=== PATIENT | female | born 1980 | race African-American/Black ===

== ENCOUNTER 2017-06-08 16:54 | Emergency (ER) | payer SELFPAY ==
[~2017-06-08] VITALS: Ht 167.6 cm; Wt 104.3 kg
[~2017-06-08 16:54] MED LIST: ACETAMINOPHEN-1 EAC2 ORAL; AUGMENTIN 875-1 EAC1 ORAL; IBUPROFEN600 MG ORAL
[2017-06-08] MEDS ORDERED: Bacitracin Oint UD TOPIC ONE (17:45)
[2017-06-08] MEDS ORDERED: IBUPROFEN600 MG ORAL (18:03)
[2017-06-08] MEDS ORDERED: AUGMENTIN 875-1 EAC1 ORAL (18:03)
[2017-06-08 18:10] VITALS: BP 146/80
[2017-06-08 18:14] VITALS: BP 146/80
--- NOTE | 2017-06-08 22:32 | Emergency Room Report ---
History of Present Illness General Chief Complaint: Animal Bite Present Illness HPI The patient is a 37-year-old female presenting for a dog bite to the left leg. She states that this occurred today by an unknown dog. Pain is a 7/10 burning sensation to the left calf. Does not radiate. Worse with touch. Last tetanus shot was 2 years prior. She denies any fever or chills. She denies any other symptoms Allergies: Coded Allergies: AMITRIPTYLINE (Unverified Allergy, Unknown, 11/27/15) ATENOLOL (Unverified Allergy, Unknown, 11/27/15) Patient History Past Medical History: see triage record Pertinent Family History: none Last Menstrual Period: 05/18/17 Now: No Immunizations: UTD Reviewed Nursing Documentation: PMH: Agreed, PSxH: Agreed Nursing Documentation-PMH Hx Hypertension: Yes Hx Asthma: Yes Review of Systems All Other Systems: negative except mentioned in HPI Physical Exam Vital Signs Date Time Temp Pulse Resp B/P Pulse Ox O2 Delivery O2 Flow Rate FiO2 06/08/17 17:10 98.8 96 17 171/99 98 Room Air Sp02 EP Interpretation: reviewed, normal General Appearance: no apparent distress, alert, GCS 15, non-toxic Head: normocephalic, atraumatic Eyes: bilateral eye PERRL, bilateral eye normal inspection Musculoskeletal: back normal, gait/station normal, normal range of motion, tender - TTP over the L posterior calf at bite site Neurologic: alert, oriented x3, responsive, motor strength/tone normal, sensory intact, speech normal Psychiatric: judgement/insight normal, memory normal, mood/affect normal, no suicidal/homicidal ideation Skin: laceration - 1cm superficial puncture to L posterior calf Lymphatic: no adenopathy Medical Decision Making PA Attestation Dr. Causey is my supervising physician. Patient management was discussed with my supervising physician Diagnostic Impression: Primary Impression: Dog bite Qualified Codes: W54.0XXA - Bitten by dog, initial encounter ER Course The patient is a 37-year-old female presenting for a dog bite to the left leg Differential diagnosis is considered but not limited to: Dog bite, wound infection, laceration, allergic reaction Physical exam: There is a 1 cm superficial laceration to the left posterior calf. No active bleeding. Normal gait The wound is cleaned with normal saline and Betadine. Bacitracin applied She'll be discharged home with Augmentin. ER precautions are given Last Vital Signs Date Time Temp Pulse Resp B/P Pulse Ox O2 Delivery O2 Flow Rate FiO2 06/08/17 18:14 98.8 87 17 146/80 99 Room Air Status: improved Disposition: HOME, SELF-CARE Condition: Improved Scripts Ibuprofen* (MOTRIN*) 600 Mg Tablet 600 MG ORAL Q8H Y for For Pain, #30 TAB 0 Refills Prov: QUINTIN EDWARDS 06/08/17 Amoxicillin/Potassium Clav 875-125* (AUGMENTIN 875-125 TABLET*) 1 Each Tablet 1 TAB ORAL TWICE A DAY, #10 TAB Prov: QUINTIN EDWARDS 06/08/17 Referrals: [facility]ERR[facility] Patient Instructions: Animal Bite Additional Instructions: I discussed my findings with the patient. All questions and concerns have been answered. Treatment and medication compliance have been addressed. I advised the patient that they need to follow up with PMD in 3-5 days. Return to ED if symptoms worsen, new symptoms arise, or if needed for any reason. Patient verbalized understanding of discharge instructions. QUINTIN EDWARDS Jun 08, 2017 22:32
== END 2017-06-08 18:15 | disposition home or self-care (01) ==
LOC: EMR 17:46
DX: S81.832A Puncture wound without foreign body, left lower leg, initial encounter (principal); W54.0XXA Bitten by dog, initial encounter; Y92.89 Other specified places as the place of occurrence of the external cause; I10 Essential (primary) hypertension; J45.909 Unspecified asthma, uncomplicated; Z79.899 Other long term (current) drug therapy
CPT/HCPCS: 99284